=== PATIENT | male | born 1980 | race Hispanic/Latino ===

== ENCOUNTER 2018-04-19 14:53 | Emergency (ER) | payer OTHER ==
--- OUTSIDE RECORDS SUMMARY | 2018-04-19 14:55 | XMS REPORT | Continuity of Care Document ---
:1980 Author Organization Interface Problems Problem Status Onset Date Classification Date Comments Source Reported Medications Medication Details Route Status Patient Ordering Order Source Instructions Provider Date Allergies, Adverse Reactions, Alerts Substance Category Reaction Severity Reaction Status Date Comments Source type Reported Immunizations Immunization Date Given Site Status Last Updated Comments Source Results Order Results Value Reference Date Interpretation Comments Source Name Range Vital Signs Vital Sign Value Date Comments Source Encounters Location Location Encounter Encounter Reason Attending ADM DC Status Source Details Type Number For Provider Date Date Visit Outpatient [id number] RADHA 03/24 Active [facility] [id number] RADHA 04[facility]28 [facility] Procedures Procedure Code Date Perfomer Comments Source
[2018-04-19 16:18] LABS: Protime INR 1.13
[2018-04-19 16:21] LABS: Absolute Lymphocytes (CBC) 1.6 K/uL (0.7-4.9); Absolute Monocytes 0.3 K/uL (0.1-1.3); Absolute Neutrophil 2.3 K/uL (1.8-8.0); Basophils % 0.3 % (0-1.3); Eosinophils % 0.9 % (0-4.4); Hematocrit 43.4 % (39.6-49.0); Lymphocytes % 37.2 % (15.3-44.8); MPV 8.3 fL (7.6-11.3); Monocytes % 7.3 % (3.3-12.3)
--- NOTE | 2018-04-19 16:27 | RAD REPORT ---
EXAM DESCRIPTION: Pooja Single View04/19/2018 4:18 pm CLINICAL HISTORY: sob COMPARISON: none FINDINGS: The lungs appear clear of acute infiltrate. The heart is normal size IMPRESSION: No acute abnormalities displayed
[2018-04-19 16:48] LABS: ALT/SGPT 41 U/L (12-78); AST/SGOT 34 U/L (15-37); Albumin 3.8 g/dL (3.4-5.0); Alkaline Phosphatase 41 U/L (45-117); BUN Blood Urea Nitrogen 13 mg/dL (7-18); Bicarbonate 27 mmol/L (21-32); Bilirubin Direct 0.2 mg/dL (0-0.2); Bilirubin Total 0.6 mg/dL (0.2-1.0); Glucose Level 83 mg/dL (74-106); NT PRO-BNP 15 pg/mL (<125); Potassium 3.7 mmol/L (3.5-5.1); Protein, Total 6.9 g/dL (6.4-8.2); Sodium Level 140 mmol/L (136-145); Troponin (Emerg Dept Use Only) < 0.02 ng/mL (0.0-0.045)
--- NOTE | 2018-04-19 17:45 | ER ---
Nurse's Notes [facility] Name: Italo Dickson Age: 37 yrs Sex: Male : 1980 Arrival Date: 04/19/2018 Time: 14:57 Bed 28 Private MD: Diagnosis: Acute bronchitis Presentation: 04/19 15:13 Presenting complaint: Patient states: Bodyaches and fever for about a few days now, has sg had some upper respiratory symptoms since December, reports coughing up blood for several days now, it has been bright red in color, has had some brown sputum as of late, denies N/V/D at this time. Transition of care: patient was not received from another setting of care. Onset of symptoms was April 19, 2018. Risk Assessment: Do you want to hurt yourself or someone else? Patient reports no desire to harm self or others. Initial Sepsis Screen: Does the patient meet any 2 criteria? RR > 20 per min. Does the patient have a suspected source of infection? Yes: Productive cough/pneumonia. Care prior to arrival: None. 15:13 Method Of Arrival: Ambulatory sg 15:13 Acuity: ASIYA 3 sg Historical: - Allergies: 15:15 No Known Allergies; sg - Home Meds: 15:15 None [Active]; sg - PMHx: 15:15 None; sg - PSHx: 15:08 Tonsillectomy; sg - Immunization history:: Adult Immunizations not up to date. - Social history:: Smoking status: Patient/guardian denies using tobacco. - Ebola Screening: : Patient negative for fever greater than or equal to 101.5 degrees Fahrenheit, and additional compatible Ebola Virus Disease symptoms Patient denies exposure to infectious person Patient denies travel to an Ebola-affected area in the 21 days before illness onset No symptoms or risks identified at this time. Screenin:16 Abuse screen: Denies threats or abuse. Denies injuries from another. Nutritional rv screening: No deficits noted. Tuberculosis screening: No symptoms or risk factors identified. Fall Risk None identified. Assessment: 16:15 General: Appears in no apparent distress. comfortable, Behavior is calm, cooperative. rv Pain: Complains of pain in back. Neuro: Level of Consciousness is awake, alert, obeys commands, Oriented to person, place, time, situation. Cardiovascular: Capillary refill < 3 seconds Rhythm is regular. Respiratory: Airway is patent Parent/caregiver reports the patient having cough that is persistent. GI: No signs and/or symptoms were reported involving the gastrointestinal system. : No signs and/or symptoms were reported regarding the genitourinary system. EENT: No signs and/or symptoms were reported regarding the EENT system. Derm: Skin is intact. Musculoskeletal: No signs and/or symptoms reported regarding the musculoskeletal system. Vital Signs: 15:15 BP 122 / 82; Pulse 79; Resp 20; Temp 100.1; Pulse Ox 100% ; Weight 79.38 kg; Height 5 sg ft. 11 in. (180.34 cm); Pain 6/10; 16:09 BP 112 / 69; Pulse 80 RA; Resp 11 S; Pulse Ox 98% on R/A; rv 16:30 BP 106 / 81; Pulse 80; Resp 14 S; Pulse Ox 99% on R/A; rv 17:00 BP 107 / 81; Pulse 77; Resp 20 S; Pulse Ox 99% on R/A; rv 17:30 BP 105 / 77; Pulse 79; Resp 18; Pulse Ox 99% on R/A; rv 15:15 Body Mass Index 24.41 (79.38 kg, 180.34 cm) ED Course: 14:57 Patient arrived in ED. ds1 15:08 Arm band placed on. sg 15:15 Triage completed. sg 15:21 Isiah Herring PA is PHCP. [facility] 15:21 Zelalem Robles MD is Attending Physician. jmm 15:53 Inserted saline lock: 20 gauge in left antecubital area, using aseptic technique. lt1 15:53 Initial lab(s) drawn, by de, sent to lab. lt1 16:13 XRAY Chest (1 view) In Process Unspecified. EDMS 16:16 Patient has correct armband on for positive identification. Bed in low position. Call rv light in reach. Side rails up X 1. turkey farmer on. Pulse ox on. NIBP on. 17:59 No provider procedures requiring assistance completed. IV discontinued, bleeding rv controlled, No redness/swelling at site. Pressure dressing applied. Administered Medications: No medications were administered Outcome: 17:45 Discharge ordered by . [facility] 17:59 Discharged to home ambulatory. rv 17:59 Condition: good 17:59 Discharge instructions given to patient, Instructed on discharge instructions, follow up and referral plans. medication usage, Demonstrated understanding of instructions, follow-up care, medications, Prescriptions given X 2. 18:00 Patient left the ED. rv Signatures: Dispatcher [employer] EDMS Gio Ramirez, RN RN Isiah Rivera PA PA jmm Sanford, Demi ds1 Preston Gonzales RN RN rv Tran, Leah lt1
--- NOTE | 2018-04-19 17:45 | EDPHYS ---
Physician Documentation [facility] Name: Italo Dickson Age: 37 yrs Sex: Male : 1980 Arrival Date: 04/19/2018 Time: 14:57 Bed 28 Private MD: ED Physician Zelalem Robles HPI: 04/19 15:41 This 37 yrs old Male presents to ER via Ambulatory with complaints of Cough, jmm Fever. 15:41 The patient or guardian reports cough. Onset: The symptoms/episode began/occurred jmm gradually, 4 day(s) ago. This is a 37 year old male with no chronic medical conditions that presents to the ED with complaints of cough, chest pain, shortness of breath beginning 4 days ago. Patient states he has had ongoing shortness of breath since December of last year. Patient also admits to hemoptysis. . Historical: - Allergies: 15:15 No Known Allergies; sg - Home Meds: 15:15 None [Active]; sg - PMHx: 15:15 None; sg - PSHx: 15:08 Tonsillectomy; sg - Immunization history:: Adult Immunizations not up to date. - Social history:: Smoking status: Patient/guardian denies using tobacco. - Ebola Screening: : Patient negative for fever greater than or equal to 101.5 degrees Fahrenheit, and additional compatible Ebola Virus Disease symptoms Patient denies exposure to infectious person Patient denies travel to an Ebola-affected area in the 21 days before illness onset No symptoms or risks identified at this time. ROS: 15:41 Eyes: Negative for injury, pain, redness, and discharge. jmm 15:41 Abdomen/GI: Negative for abdominal pain, nausea, vomiting, diarrhea, and constipation. 15:41 Constitutional: Positive for chills. 15:41 ENT: Positive for 15:41 Respiratory: Positive for cough, hemoptysis, shortness of breath. 15:41 Neuro: 15:41 All other systems are negative. Exam: 15:41 Constitutional: This is a well developed, well nourished patient who is awake, alert, jmm and in no acute distress. Head/Face: atraumatic. Eyes: EOMI, no conjunctival erythema appreciated ENT: Moist Mucus Membranes Neck: Trachea midline, Supple Chest/axilla: Normal chest wall appearance and motion. 15:41 Cardiovascular: Rate: normal, Rhythm: regular. 15:41 Respiratory: the patient does not display signs of respiratory distress, Respirations: normal, Breath sounds: are clear throughout. 15:41 Abdomen/GI: Inspection: abdomen appears normal, Bowel sounds: normal, Palpation: abdomen is soft and non-tender, in all quadrants. 15:41 Musculoskeletal/extremity: ROM: intact in all extremities. 15:41 Skin: Appearance: Color: normal in color. 15:41 Neuro: Orientation: is normal, Mentation: is normal, Memory: is normal. 15:41 Psych: Behavior/mood is pleasant, cooperative. Vital Signs: 15:15 BP 122 / 82; Pulse 79; Resp 20; Temp 100.1; Pulse Ox 100% ; Weight 79.38 kg; Height 5 sg ft. 11 in. (180.34 cm); Pain 6/10; 16:09 BP 112 / 69; Pulse 80 RA; Resp 11 S; Pulse Ox 98% on R/A; rv 16:30 BP 106 / 81; Pulse 80; Resp 14 S; Pulse Ox 99% on R/A; rv 17:00 BP 107 / 81; Pulse 77; Resp 20 S; Pulse Ox 99% on R/A; rv 17:30 BP 105 / 77; Pulse 79; Resp 18; Pulse Ox 99% on R/A; rv 15:15 Body Mass Index 24.41 (79.38 kg, 180.34 cm) sg MDM: 15:42 Patient medically screened. jenny 17:44 Data reviewed: vital signs, nurses notes. Counseling: I had a detailed discussion with gela the patient and/or guardian regarding: the historical points, exam findings, and any diagnostic results supporting the discharge/admit diagnosis, lab results, radiology results, the need for outpatient follow up, to return to the emergency department if symptoms worsen or persist or if there are any questions or concerns that arise at home. ED course: Patient is alert and non toxic in appearance in the ED. Patient is advised to follow up with his pcp and otherwise given strict return precautions. Patient understood and agrees with the plan of care. . 04/19 15:43 Order name: Basic Metabolic Panel; Complete Time: 16:50 [facility] 04/19 15:43 Order name: CBC with Diff; Complete Time: 16:28 [facility] 04/19 15:43 Order name: LFT's; Complete Time: 16:50 [facility] 04/19 15:43 Order name: Magnesium; Complete Time: 16:50 [facility] 04/19 15:43 Order name: NT PRO-BNP; Complete Time: 16:50 [facility] 04/19 15:43 Order name: PT-INR; Complete Time: 16:50 [facility] 04/19 15:43 Order name: Troponin (emerg Dept Use Only); Complete Time: 16:50 [facility] 04/19 15:43 Order name: XRAY Chest (1 view); Complete Time: 16:28 04/19 15:43 Order name: Cardiac monitoring; Complete Time: 15:54 04/19 15:43 Order name: EKG - Nurse/Tech; Complete Time: 15:54 [facility] 04/19 15:43 Order name: IV Saline Lock; Complete Time: 15: [facility] 04/19 15:43 Order name: D-Dimer; Complete Time: 16:50 [facility] 04/19 15:51 Order name: Flu; Complete Time: 17: 04/19 15:43 Order name: Labs collected and sent; Complete Time: 15: [facility] 04/19 15:43 Order name: O2 Per Protocol; Complete Time: 15: [facility] 04/19 15:43 Order name: O2 Sat Monitoring; Complete Time: 15:54 jmm Administered Medications: No medications were administered Disposition: 04/20 08:00 Co-signature as Attending Physician, Zelalem Robles MD I agree with the assessment and jenny plan of care. Disposition: 04/19/18 17:45 Discharged to Home. Impression: Acute bronchitis. - Condition is Stable. - Discharge Instructions: Acute Bronchitis, Adult. - Prescriptions for Zithromax Z- Lars 250 mg Oral Tablet - take 1 tablet by ORAL route as directed for 5 days Day 1 - take two (2) tablets one time. Day 2, 3, 4 , 5 take one (1) tablet once daily.; 6 tablet. Albuterol Sulfate 90 mcg/actuation - inhale 1-2 puff by INHALATION route every 4-6 hours; 1 Inhaler. - Medication Reconciliation Form, Thank You Letter, Antibiotic Education, Prescription Opioid Use form. - Follow up: Private Physician; When: 2 - 3 days; Reason: Recheck today's complaints, Continuance of care, Re-evaluation by your physician. Signatures: Dispatcher [employer] EDGio Jorge RN RN Zelalem Mauro MD MD cha Mickail, Joel, PA PA jmm Vicente, Ronaldo, DEMETRIUS RN rv Corrections: (The following items were deleted from the chart) 04/19 18:00 17:45 04/19/2018 17:45 Discharged to Home. Impression: Acute bronchitis. Condition is rv Stable. Forms are Medication Reconciliation Form, Thank You Letter, Antibiotic Education, Prescription Opioid Use. Follow up: Private Physician; When: 2 - 3 days; Reason: Recheck today's complaints, Continuance of care, Re-evaluation by your physician. gela
--- NOTE | 2018-04-20 18:44 | EKG ---
Test Date: 2018-04-19 Test Time: 15:28:17 Regional Retail Sales Manager: ARMIDAT MEASUREMENT RESULTS: Intervals: Rate: 73 WI: 140 QRSD: 84 QT: 374 QTc: 412 [place]: P: 61 WI: 140 QRS: -15 T: 27 INTERPRETIVE STATEMENTS: Normal sinus rhythm Normal ECG No previous ECG available for comparison Electronically Signed On 04-20-18 18:43:35 TICKET SPECULATOR by Garcia Smith
== END 2018-04-19 18:00 | disposition home or self-care (01) ==
LOC: ER 14:53
DX: J40 Bronchitis, not specified as acute or chronic (principal)
CPT/HCPCS: 36415; 71045; 80048; 80076; 83735; 83880; 84484; 85025; 85379; 85610; 87804; 93005; 99284

== ENCOUNTER 2019-06-02 14:04 | Emergency (ER) | payer OTHER ==
[2019-06-02 16:25] VITALS: BP 117/86; TEMP 97.5; O2SAT 100
== END 2019-06-02 16:21 | disposition home or self-care (01) ==
LOC: ER 14:04
DX: J06.9 Acute upper respiratory infection, unspecified (principal); Z03.818 Encounter for observation for suspected exposure to other biological agents ruled out
CPT/HCPCS: 87070; 87081; 87804; 99283